=== PATIENT | male | born 1985 | race Caucasian/White ===

== ENCOUNTER → 2016-09-03 | Outpatient (CLI) | payer OTHER ==
[2016-09-03 17:40] LABS: BASO % 0.4 %; BASO ABS # 0.03 K/uL (0-0.2); COMPLETE YES; EOS % 1.9 %; IG% 0.1 %; LYMPH % 32.8 %; LYMPH ABS # 2.23 K/uL (1.2-3.4); MEAN CELL VOLUME 83.3 fL (80-100); MEAN CORPUSCULAR HEMOGLOBIN 30.9 pg (25-34); MEAN CORPUSCULAR HGB CONC 37.1 g/dl (32-36); MEAN PLATELET VOLUME 10.3 fL (7.4-10.4); MONO % 8.1 %; NEUT % 56.7 %; PLATELET COUNT 192 K/uL (130-400); RED BLOOD COUNT 4.92 M/uL (4.7-6.1); WHITE BLOOD COUNT 6.79 K/uL (4.8-10.8)
[2016-09-03 17:57] LABS: BLOOD UREA NITROGEN 16 mg/dl (7-18); CARBON DIOXIDE 27 mmol/L (21-32); CHLORIDE 106 mmol/L (98-107); CREATININE 0.93 mg/dl (0.60-1.40); GLUCOSE 83 mg/dl (70-99); POTASSIUM 4.2 mmol/L (3.5-5.1); SODIUM 140 mmol/L (136-145)
[2016-09-03 18:08] LABS: THYROID STIMULATING HORMONE 0.828 uIu/ml (0.300-4.500)
[2016-09-03 18:49] LABS: LYME DISEASE AB IGG NEG (NEG)
[2016-09-03 19:23] LABS: LYME DISEASE AB IGM EQUIVOCAL (NEG)
[2016-09-04 06:33] LABS: ESTIMATED AVERAGE GLUCOSE 94 mg/dl; HA1C FLAG Normal (Normal)
[2016-09-06 16:49] LABS: 18KDIGG BAND NONREACTIVE (NONREACTIVE); 23KDIGG BAND NONREACTIVE (NONREACTIVE); 23KDIGM BAND REACTIVE (NONREACTIVE); 28KDIGG BAND NONREACTIVE (NONREACTIVE); 30KDIGG BAND NONREACTIVE (NONREACTIVE); 39KDIGG BAND NONREACTIVE (NONREACTIVE); 39KDIGM BAND REACTIVE (NONREACTIVE); 41KDIGG BAND NONREACTIVE (NONREACTIVE); 41KDIGM BAND NONREACTIVE (NONREACTIVE); 45KDIGG BAND NONREACTIVE (NONREACTIVE); 58KDIGG BAND NONREACTIVE (NONREACTIVE); 66KDIGG BAND NONREACTIVE (NONREACTIVE); 93KDIGG BAND NONREACTIVE (NONREACTIVE)
== END | disposition home or self-care (01) ==
LOC: C.LABPBG 15:56
PROVIDERS: ATTEND Physician Assistant
DX: R20.0 Anesthesia of skin (principal); R61 Generalized hyperhidrosis; R00.2 Palpitations; R63.1 Polydipsia; M25.551 Pain in right hip

== ENCOUNTER → 2016-10-01 | Outpatient (CLI) | payer OTHER | END | disposition home or self-care (01) | LOC: C.LABPBG 15:43 | PROVIDERS: ATTEND Physician Assistant | DX: Q55.9 Congenital malformation of male genital organ, unspecified (principal) ==

== ENCOUNTER → 2017-03-13 | Outpatient (CLI) | payer OTHER ==
[2017-03-13 18:13] LABS: ALT/SGPT 28 U/L (12-78); AST/SGOT 16 U/L (15-37); BLOOD UREA NITROGEN 11 mg/dl (7-18); BUN/CREATININE RATIO 13.8 (10-20); CALCIUM 8.5 mg/dl (8.5-10.1); CARBON DIOXIDE 27 mmol/L (21-32); CHLORIDE 108 mmol/L (98-107); CREATININE 0.78 mg/dl (0.60-1.40); GLUCOSE 92 mg/dl (70-99); SODIUM 140 mmol/L (136-145)
[2017-03-13 18:15] LABS: ALB/GLOB RATIO 1.3 (0.9-2); ALKALINE PHOSPHATASE 62 U/L (45-117)
== END | disposition home or self-care (01) ==
LOC: C.LABPBG 15:29
PROVIDERS: ATTEND Physician Assistant
DX: E55.9 Vitamin D deficiency, unspecified (principal); R61 Generalized hyperhidrosis; M25.551 Pain in right hip

== ENCOUNTER → 2017-03-19 | Outpatient (CLI) | payer OTHER ==
--- NOTE | 2017-03-19 08:53 | DIAGNOSTIC IMAGING REPORT ---
ULTRASOUND TESTES AND SCROTUM CLINICAL HISTORY: Testicular asymmetry. COMPARISON STUDY: No priors. TECHNIQUE: Real-time, grayscale, and color Doppler sonography of the testes and scrotum is performed. Images are reviewed in the transverse and longitudinal planes. FINDINGS: The testes are normal in size and homogeneous in echotexture. The right testis measures 4.5 x 2.2 x 3.3 cm and the left testis measures 4.1 x 3.1 x 3.6 cm. No intratesticular mass is seen. Testicular blood flow is normal and symmetric. Normal Doppler waveforms are identified in both testes. The epididymal heads are normal in appearance. The right epididymal head measures 1.3 cm in length and the left epididymal head measures 1.3 cm in length. A 2 mm epididymal head cyst is seen on the right. No varicocele or hydrocele is seen. IMPRESSION: Unremarkable sonographic assessment of the testes and scrotum. Electronically signed by: Dennis Villanueva M.D. 03/19/2017 8:52 AM Dictated Date/Time: 03/19/2017 8:47 AM
== END | disposition home or self-care (01) ==
LOC: C.ULTR 08:06
PROVIDERS: ATTEND Physician Assistant
DX: Q55.9 Congenital malformation of male genital organ, unspecified (principal)

== ENCOUNTER 2018-01-02 18:30 | Emergency (ER) | payer OTHER ==
[~2018-01-02] VITALS: Ht 157.5 cm; Wt 67.9 kg
[2018-01-02 18:36] VITALS: Ht 157.5 cm; Wt 67.9 kg
[2018-01-02] MEDS ORDERED: KETOROLAC TROMETHAMINE 30 MG/ML VIAL IV STA (19:44)
[2018-01-02] MEDS ORDERED: CEFTRIAXONE SOD INJ 1 GM ADDVIAL IV STA (19:44)
--- NOTE | 2018-01-02 19:49 | EMERGENCY ROOM VISIT NOTE ---
History Report prepared by Katelynn: Lyla Lagunas Under the Supervision of: Dr. Kael Watts M.D. First contact with patient: 19:32 Chief Complaint: BITE Stated Complaint: BUG BITE, CHEST PAIN, SOB, BAKER History of Present Illness The patient is a 32 year old male who presents to the Emergency Room with complaints of an episode of a bug bite that occurred today. The patient notes that he does not think it is a tick bite because it formed a welt. He states that he has lyme disease. He notes that movement exacerbates the pain. The patient states that rest alleviates the pain. The patient complains of center left chest pain, fever, chills, shortness of breath, headache, left side pain, and left lymphoid swelling under his armpit. The patient denies being on recent antibiotics. He states that he was on Doxycycline for 6 months. He notes that he has a family history of stroke. The patient denies smoking but chews tobacco. Source of History: patient Onset: Today Position: chest Modifying Factors (Worsening): movement Modifying Factors (Relieving): rest Associated Symptoms: + fevers, + chills, + headache, + chest pain (center left), + SOB Note: The patient complains of left side pain and left lymphoid swelling under his armpit. Review of Systems See HPI for pertinent positives & negatives. A total of 10 systems reviewed and were otherwise negative. Past Medical & Surgical Medical Problems: (1) Kidney stones (2) Lyme disease Family History FH: cancer FH: diabetes mellitus FH: heart disease FH: hypertension FH: kidney disease FH: lung disease FH: stroke Social History Smoking Status: Never Smoker Alcohol Use: none Housing Status: lives with family Occupation Status: employed Current/Historical Medications Scheduled Amoxicillin & Pot Clavulanate (Augmentin 875-125 mg), 1 TAB PO BID Scheduled PRN Meloxicam (Mobic), 7.5 MG PO DAILY PRN for Pain Allergies Coded Allergies: Pertussis Toxoid (Verified Allergy, Unknown, ., 08/03/15) Physical Exam Vital Signs Date Time Temp Pulse Resp B/P (MAP) Pulse Ox O2 Delivery O2 Flow Rate FiO2 01/02/18 21:55 37.4 59 17 109/54 98 01/02/18 21:30 59 17 98 01/02/18 21:17 109/54 01/02/18 20:30 72 13 98 01/02/18 20:17 73 01/02/18 20:13 97 Room Air 01/02/18 18:36 37.4 70 18 112/69 98 Room Air Physical Exam GENERAL: Awake, alert, well-appearing, in no acute distress HENT: Normocephalic, atraumatic. Oropharynx unremarkable. EYES: Normal conjunctiva. Sclera non-icteric. NECK: Supple. No nuchal rigidity. FROM. No JVD. RESPIRATORY: Clear to auscultation. CARDIAC: Regular rate, normal rhythm. Extremities warm and well perfused. Pulses equal. ABDOMEN: Soft, non-distended. No tenderness to palpation. No rebound or guarding. No masses. RECTAL: Deferred. MUSCULOSKELETAL: Chest examination reveals no tenderness. The back is symmetrical on inspection without obvious abnormality. There is no CVA tenderness to palpation. No joint edema. LOWER EXTREMITIES: Calves are equal size bilaterally and non-tender. No edema. No discoloration. NEURO: Normal sensorium. No sensory or motor deficits noted. SKIN: 2 in by 2 in welt to the left chest wall. Medical Decision & Procedures ER Provider Diagnostic Interpretation: Radiology results as stated below per my review and radiologist interpretation: CHEST ONE VIEW PORTABLE CLINICAL HISTORY: Chest pain. COMPARISON STUDY: No previous studies for comparison. FINDINGS: Lung volumes are normal. Right heart border is indistinct. Cardiac size is normal. There is no evidence for pulmonary edema or pneumonia. No pneumothorax or pleural effusion is noted. IMPRESSION: No acute cardiopulmonary findings. Electronically signed by: Todd Garcia M.D. 01/02/2018 8:46 PM Dictated Date/Time: 01/02/2018 8:46 PM Laboratory Results 01/02/18 19:55 Red Blood Count 4.94, Mean Corpuscular Volume 84.2, Mean Corpuscular Hemoglobin 30.6, Mean Corpuscular Hemoglobin Concent 36.3, Mean Platelet Volume 10.7, Neutrophils (%) (Auto) 73.6, Lymphocytes (%) (Auto) 15.7, Monocytes (%) (Auto) 9.7, Eosinophils (%) (Auto) 0.6, Basophils (%) (Auto) 0.2, Neutrophils # (Auto) 4.89, Lymphocytes # (Auto) 1.04, Monocytes # (Auto) 0.64, Eosinophils # (Auto) 0.04, Basophils # (Auto) 0.01 01/02/18 19:55 Test 01/02/18 19:55 White Blood Count 6.63 K/uL (4.8-10.8) Red Blood Count 4.94 M/uL (4.7-6.1) Hemoglobin 15.1 g/dL (14.0-18.0) Hematocrit 41.6 % (42-52) Mean Corpuscular Volume 84.2 fL (80-100) Mean Corpuscular Hemoglobin 30.6 pg (25-34) Mean Corpuscular Hemoglobin Concent 36.3 g/dl (32-36) Platelet Count 147 K/uL (130-400) Mean Platelet Volume 10.7 fL (7.4-10.4) Neutrophils (%) (Auto) 73.6 % Lymphocytes (%) (Auto) 15.7 % Monocytes (%) (Auto) 9.7 % Eosinophils (%) (Auto) 0.6 % Basophils (%) (Auto) 0.2 % Neutrophils # (Auto) 4.89 K/uL (1.4-6.5) Lymphocytes # (Auto) 1.04 K/uL (1.2-3.4) Monocytes # (Auto) 0.64 K/uL (0.11-0.59) Eosinophils # (Auto) 0.04 K/uL (0-0.5) Basophils # (Auto) 0.01 K/uL (0-0.2) RDW Standard Deviation 38.0 fL (36.4-46.3) RDW Coefficient of Variation 12.5 % (11.5-14.5) Immature Granulocyte % (Auto) 0.2 % Immature Granulocyte # (Auto) 0.01 K/uL (0.00-0.02) Red Blood Cell Morphology Unremarkable Anion Gap 6.0 mmol/L (3-11) Est Creatinine Clear Calc Drug Dose 96.7 ml/min Estimated GFR () 125.5 Estimated GFR (Non- 108.2 BUN/Creatinine Ratio 13.8 (10-20) Calcium Level 8.6 mg/dl (8.5-10.1) Total Bilirubin 0.5 mg/dl (0.2-1) Direct Bilirubin 0.1 mg/dl (0-0.2) Aspartate Amino Transf (AST/SGOT) 19 U/L (15-37) Alanine Aminotransferase (ALT/SGPT) 25 U/L (12-78) Alkaline Phosphatase 52 U/L (45-117) Total Creatine Kinase 72 U/L (39-308) Creatine Kinase MB < 1.0 ng/ml (0.5-3.6) Creatine Kinase MB Ratio (0-3.0) Troponin I < 0.015 ng/ml (0-0.045) Total Protein 7.3 gm/dl (6.4-8.2) Albumin 4.0 gm/dl (3.4-5.0) Lipase 144 U/L (73-393) Labs reviewed by ED physician. Medications Administered Medications (Trade) Dose Ordered Sig/Florecita Route Start Time Stop Time Status Last Admin Dose Admin Ketorolac Tromethamine (Toradol Inj) 30 mg NOW STAT IV 01/02/18 19:44 01/02/18 19:47 DC 01/02/18 20:12 30 MG Ceftriaxone Sodium (Rocephin Inj) 2 gm NOW STAT IV 01/02/18 19:44 01/02/18 19:47 DC 01/02/18 20:12 2 GM Potassium Chloride (Klor-Con M10) 40 meq STK-MED ONCE .ROUTE 01/02/18 21:12 01/02/18 21:13 DC 01/02/18 21:12 40 MEQ ECG Per My Interpretation Indication: chest pain Rate (beats per minute): 70 Rhythm: normal sinus Findings: other (No ST segment elevation or depression ) ED Course 1926: Past medical records reviewed. The patient was evaluated in room B6. A complete history and physical examination was performed. 2019: Upon reexamination the patient is resting comfortably. 2030: Upon reexamination the patient is resting comfortably. I discussed results and treatment plan with the patient. he verbalizes agreement and understanding. The patient is ready for discharge. Medical Decision Differential diagnosis: Etiologies such as cardiac ischemia, aortic dissection, pulmonary embolism, pneumonia, pneumothorax, musculoskeletal, infections, pericarditis, myocarditis , esophageal rupture, gastrointestinal, as well as others were entertained. This is a 32-year-old male who presents emergency department complaining of a bug bite to the left chest wall. The patient has a history of Lyme's disease and does not want a Lyme titer drawn however his is concerned about her Ehrlichia as well as anaplasmosis. For this reason the patient was given 2 g of Rocephin. The patient is complaining of generalized aches and pains throughout his entire body therefore he was also given Toradol. He has a normal CK-MB as well as troponin. Repeat examination revealed much improvement the patient's symptoms. The patient is concerned he is allergic to doxycycline therefore I will place the patient on Augmentin pending culture results. I stressed the need for follow-up with infectious disease. Patient and are in agreement with the treatment plan. Medication Reconcilliation Current Medication List: was personally reviewed by me Blood Pressure Screening Patient's blood pressure: Normal blood pressure Impression Primary Impression: Insect bites Scribe Attestation The scribe's documentation has been prepared under my direction and personally reviewed by me in its entirety. I confirm that the note above accurately reflects all work, treatment, procedures, and medical decision making performed by me. Departure Information Dispostion Home / Self-Care Prescriptions Amoxicillin & Pot Clavulanate (Augmentin 875-125 mg) 1 Tab Tab 1 TAB PO BID for 14 Days, #28 TAB Prov: Kael Watts MD 01/02/18 Referrals Edwin Lema D.O. (PCP) Forms HOME CARE DOCUMENTATION FORM, IMPORTANT VISIT INFORMATION Patient Instructions [facility] Additional Instructions Follow up with Dr Keller's office Culture results are usually available in approx 48 hours You have been examined and treated today on an emergency basis only. This is not a substitute for, or an effort to provide, complete comprehensive medical care. It is impossible to recognize and treat all injuries or illnesses in a single emergency department visit. It is therefore important that you follow up closely with Dr Lema. Call as soon as possible for an appointment. Thank you for your time and consideration. I look forward to speaking with you again soon. Please don't hesitate to call us if you have any questions. Problem Qualifiers Primary Impression: Insect bites Encounter type: initial encounter Qualified Codes: W57.XXXA - Bitten or stung by nonvenomous insect and other nonvenomous arthropods, initial encounter
[2018-01-02 20:11] LABS: BASO % 0.2 %; BASO ABS # 0.01 K/uL (0-0.2); EOS % 0.6 %; EOS ABS # 0.04 K/uL (0-0.5); HEMATOCRIT 41.6 % (42-52); HEMOGLOBIN 15.1 g/dL (14.0-18.0); IG# 0.01 K/uL (0.00-0.02); LYMPH % 15.7 %; LYMPH ABS # 1.04 K/uL (1.2-3.4); MEAN CELL VOLUME 84.2 fL (80-100); MEAN CORPUSCULAR HEMOGLOBIN 30.6 pg (25-34); MEAN CORPUSCULAR HGB CONC 36.3 g/dl (32-36); MEAN PLATELET VOLUME 10.7 fL (7.4-10.4); MONO % 9.7 %; MONO ABS # 0.64 K/uL (0.11-0.59); NEUT % 73.6 %; NEUT ABS # 4.89 K/uL (1.4-6.5); PLATELET COUNT 147 K/uL (130-400); RED CELL DISTRIBUTION WIDTH CV 12.5 % (11.5-14.5); WHITE BLOOD COUNT 6.63 K/uL (4.8-10.8)
[2018-01-02 20:13] VITALS: O2SAT 97
[2018-01-02] MEDS ORDERED: MELO7.5T5 PO (20:14)
[2018-01-02 20:33] LABS: ALKALINE PHOSPHATASE 52 U/L (45-117); ALT/SGPT 25 U/L (12-78); AST/SGOT 19 U/L (15-37); BLOOD UREA NITROGEN 13 mg/dl (7-18); CALCIUM 8.6 mg/dl (8.5-10.1); CARBON DIOXIDE 27 mmol/L (21-32); CKMB < 1.0 ng/ml (0.5-3.6); CREATININE 0.93 mg/dl (0.60-1.40); GLUCOSE 103 mg/dl (70-99); LIPASE 144 U/L (73-393); POTASSIUM 3.4 mmol/L (3.5-5.1); SODIUM 138 mmol/L (136-145); TOTAL PROTEIN 7.3 gm/dl (6.4-8.2)
--- NOTE | 2018-01-02 20:47 | DIAGNOSTIC IMAGING REPORT ---
CHEST ONE VIEW PORTABLE CLINICAL HISTORY: Chest pain. COMPARISON STUDY: No previous studies for comparison. FINDINGS: Lung volumes are normal. Right heart border is indistinct. Cardiac size is normal. There is no evidence for pulmonary edema or pneumonia. No pneumothorax or pleural effusion is noted. IMPRESSION: No acute cardiopulmonary findings. Electronically signed by: Todd Garcia M.D. 01/02/2018 8:46 PM Dictated Date/Time: 01/02/2018 8:46 PM
[2018-01-02] MEDS ORDERED: POTASSIUM CHLORIDE 20 MEQ TABCR PO STA (21:02)
[2018-01-02] MEDS ORDERED: POTASSIUM CHLORIDE 10 MEQ TABCR ONE (21:12)
[2018-01-02] MEDS ORDERED: AMOX875T PO (21:47)
[2018-01-02 21:55] VITALS: BP 109/54; PULSE 59; TEMP 37.4; O2SAT 98
== END 2018-01-02 21:56 | disposition home or self-care (01) ==
LOC: C.EDB 18:32
DX: S21.95XA Open bite of unspecified part of thorax, initial encounter (principal); W57.XXXA Bitten or stung by nonvenomous insect and other nonvenomous arthropods, initial encounter; R50.9 Fever, unspecified; R06.02 Shortness of breath; R51 Headache; R60.0 Localized edema; A69.20 Lyme disease, unspecified; Z88.7 Allergy status to serum and vaccine